=== PATIENT | female | born 2000 | race Two or more races ===

== ENCOUNTER 2021-01-26 16:45 | Inpatient (IN) | payer MEDICAID, SELFPAY ==
[~2021-01-26] VITALS: Ht 162.6 cm; Wt 95.3 kg
[2021-01-26] MEDS ORDERED: PRETAB PO (17:29)
[2021-01-26] MEDS ORDERED: PROMETHAZINE 25 MG/ML VIAL IVP PRN (17:30)
[2021-01-26] MEDS ORDERED: NALBUPHINE 10 MG/ML AMP IVP PRN (17:30)
[2021-01-26] MEDS ORDERED: METHYLERGONOVINE 0.2 MG/ML AMP IM PRN (17:30)
[2021-01-26] MEDS ORDERED: OXYTOCIN 10 UNITS/ML VIAL IM SCH (17:30)
[2021-01-26] MEDS ORDERED: CARBOPROST 250 MCG/ML AMP IM PRN (17:30)
[2021-01-26] MEDS ORDERED: OXYTOCIN 20 UNITS in LACTATED RINGERS 1,000 ML IV SCH (18:00)
[2021-01-26 18:15] LABS: APPEARANCE,URINE CLEAR (CLEAR); BILIRUBIN,URINE NEGATIVE (NEGATIVE); BLOOD, URINE TRACE-I (NEGATIVE); COLOR,URINE YELLOW (YELLOW); LEUKOCYTE ESTERASE ,URINE NEGATIVE (NEGATIVE); NITRITE, URINE NEGATIVE (NEGATIVE); UGLUCOSE NEGATIVE (NEGATIVE)
[2021-01-26 18:16] LABS: BASOPHILS % (AUTO) 0.2 % (0.0-2.0); EOSINOPHILS % (AUTO) 0.3 % (0.0-4.0); HEMATOCRIT 38.6 % (36-48); HEMOGLOBIN 13.3 g/dL (12.0-16.0); LYMPHOCYTES # (AUTO) 1.9 K/uL (2.5-16.5); MEAN CORPUSCULAR HEMOGLOBIN 32 pg (27-31); MEAN CORPUSCULAR HGB CONC 35 g/dL (33-37); MEAN CORPUSCULAR VOLUME 91.8 fL (80-94); MONOCYTES # (AUTO) 0.6 K/uL (0.8-1.0); MONOCYTES % (AUTO) 5.4 % (1.7-9.3); NEUTROPHILS # (AUTO) 8.2 K/uL (1.8-7.7); NEUTROPHILS % (AUTO) 76.1 % (42.2-75.2); PLATELET COUNT (AUTO) 278 K/uL (140-450); RED BLOOD CELL COUNT(AUTO) 4.21 MIL/uL (4.20-5.40); RED CELL DISTRIBUTION WIDTH 13.6 % (11.6-13.7); WHITE BLOOD COUNT (AUTO) 10.7 K/uL (4.8-10.8)
[2021-01-26 18:31] LABS: ALBUMIN 2.7 g/dL (3.4-5.0); ANION GAP 16.6 (8-16); CARBON DIOXIDE 20.5 mmol/L (21-32); CREATININE 0.7 mg/dL (0.6-1.3); POTASSIUM 4.1 mmol/L (3.5-5.1); TOTAL BILIRUBIN 0.3 mg/dL (0.0-1.0)
[2021-01-26 18:40] LABS: BARBITURATE, URINE NEGATIVE ng/ml (NEG <=200); BENZODIAZEPINE, URINE NEGATIVE ng/mL (NEG <=200); CANNABINOID, URINE POSITIVE ng/mL (NEG <=50); COCAINE, URINE NEGATIVE ng/mL (NEG <=300); OPIATE, URINE NEGATIVE ng/mL (NEG <=2000); PHENCYCLIDINE SCREEN,URINE NEGATIVE ng/mL (NEG <=25)
[2021-01-26 18:46] LABS: RBC,URINE 0-5 /HPF (0-5); WBC,URINE 0-5 /HPF (0-5)
[2021-01-26 19:26] VITALS: BP 125/82
[2021-01-26] MEDS: LACTATED RINGERS 1,000 ML IV SCH (20:30)
[2021-01-26] MEDS ORDERED: AMPICILLIN 2,000 MG in NACL 0.9% 100 ML IV SCH (20:50)
[2021-01-26] MEDS ORDERED: AMPICILLIN 2,000 MG VIAL ONE (20:56)
[2021-01-27] MEDS ORDERED: AMPICILLIN 1,000 MG in NACL 0.9% 50 ML IV SCH ×2
[2021-01-27] MEDS ORDERED: fentaNYL citrate 0.05 MG/ML VIAL ONE ×3 (00:01→23:20)
[2021-01-27] MEDS ORDERED: ROPIVACAINE 0.2%/NS PREMIX 200 ML EPI ONE ×3 (00:02→22:50)
[2021-01-27] MEDS ORDERED: OXYTOCIN 20 UNITS/LR PREMIX 1,000 ML IV ONE (04:07)
--- NOTE | 2021-01-27 08:55 | NUR ---
PATIENT HAS BEEN SCREENED AND CATEGORIZED LOW NUTRITION RISK. PATIENT WILL BE SEEN WITHIN 7 DAYS OF ADMISSION. 02/02/[address]
[2021-01-27] MEDS: LACTATED RINGERS 1,000 ML IV SCH ×3 (12:55→22:30)
[2021-01-28] MEDS: LACTATED RINGERS 1,000 ML IV SCH (01:51)
[2021-01-28] MEDS ORDERED: METHYLERGONOVINE 0.2 MG TAB PO PRN (03:20)
[2021-01-28] MEDS ORDERED: oxyCODONE/APAP 5/325 MG 1 TAB TAB PO PRN ×2 (03:20)
[2021-01-28] MEDS ORDERED: BENZOCAINE/MENTHOL 20%-0.5% 60 GM CAN TP PRN (03:20)
[2021-01-28] MEDS ORDERED: OXYTOCIN 10 UNITS/ML VIAL IM PRN (03:20)
[2021-01-28] MEDS ORDERED: METHYLERGONOVINE 0.2 MG/ML AMP IM PRN (03:20)
[2021-01-28] MEDS ORDERED: TEMAZEPAM 15 MG CAP PO PRN (03:20)
[2021-01-28] MEDS: IBUPROFEN 800 MG TAB PO PRN (13:58)
[2021-01-28] MEDS ORDERED: DOCUSATE SOD/SENNA 50/8.6 MG 1 TAB PO SCH (21:00)
[2021-01-29] MEDS: IBUPROFEN 800 MG TAB PO PRN ×2 (04:21→14:57)
[2021-01-29 05:31] LABS: HEMATOCRIT 31.8 % (36-48); HEMOGLOBIN 10.8 g/dL (12.0-16.0)
== END 2021-01-30 12:00 | disposition home or self-care (01) | DRG 560 ==
LOC: MFCC 16:45 → OBSVTOIN 17:35 → MFCC 01-28 04:45
PROVIDERS: ADMIT Obstetrics & Gynecology; ATTEND Obstetrics & Gynecology
PROC: 10E0XZZ Delivery of Products of Conception, External Approach (ICD-10-PCS; principal; 2021-01-28)
PROC: 0UQGXZZ Repair Vagina, External Approach (ICD-10-PCS; 2021-01-28)
PROC: 3E0234Z Introduction of Serum, Toxoid and Vaccine into Muscle, Percutaneous Approach (ICD-10-PCS; 2021-01-28)
DX: O69.1XX0 Labor and delivery complicated by cord around neck, with compression, not applicable or unspecified (principal); O71.4 Obstetric high vaginal laceration alone; Z20.822 Contact with and (suspected) exposure to COVID-19; Z3A.40 40 weeks gestation of pregnancy; Z37.0 Single live birth; Z23 Encounter for immunization
CPT/HCPCS: 36415; 51702; 59409; 76805; 80053; 80305; 81001; 85018; 85025; 86592; 86762; 86886; 86900; 86901; 87340; 87653-90; 90715; G0378; J0290; J2590; J2795; J3010; J7120